=== PATIENT | male | born 1945 | race Caucasian/White ===

== ENCOUNTER 2019-12-16 09:33 | Emergency (ER) | payer MEDICARE, OTHER ==
--- NOTE | 2019-12-16 12:17 | ED.PDOC ---
History of Present Illness - General Chief Complaint: General Stated Complaint: Bilateral leg swelling, numbness, right hip pain Time Seen by Provider: 12/16/19 09:39 Source: patient Exam Limitations: no limitations - History of Present Illness Initial Comments: Patient is a 74-year-old male presented emergency room secondary concern overMild bilateral lower extremity swelling. The patient had back surgery about 5 days ago. He has had a decreased level of activity. No shortness of breath or chest pain. No overt evidence of any infection. No history of any DVTs. No history of CHF. No rash. No pain in the extremities. Timing/Duration: other - 2 days Severity: mild Improving Factors: nothing Worsening Factors: nothing Associated Symptoms: denies symptoms Allergies/Adverse Reactions: Allergies NO KNOWN ALLERGY Allergy (Verified 12/16/19 10:12) Home Medications: Ambulatory Orders Acetaminophen W/ Codeine [Acetaminophen/Codeine Ramona] 1 tab PO Q6HRS PRN 12/16/19 Baclofen 5 mg PO Q6HR 12/16/19 Gabapentin 600 mg PO TID 12/16/19 Lisinopril 10 mg PO DAILY 12/16/19 Multiple Vitamin [Multi Vitamin] 1 tab PO DAILY 12/16/19 Review of Systems - Review of Systems Constitutional: States: no symptoms reported EENTM: States: no symptoms reported Respiratory: States: no symptoms reported Cardiology: States: edema Gastrointestinal/Abdominal: States: no symptoms reported Genitourinary: States: no symptoms reported Musculoskeletal: States: no symptoms reported Skin: States: no symptoms reported Neurological: States: see HPI Endocrine: States: no symptoms reported Hematologic/Lymphatic: States: no symptoms reported All other Systems: No Change from Baseline Past Medical History (General) - Patient Medical History Hx Seizures: No Hx Stroke: No Hx Dementia: No Hx Asthma: No Hx of COPD: No Hx Cardiac Disorders: No Hx Congestive Heart Failure: No Hx Pacemaker: No Hx Hypertension: Yes Hx Thyroid Disease: No Hx Diabetes: No Hx Gastroesophageal Reflux: No Hx Renal Disease: No Hx Cancer: No Hx Hepatitis C: No Surgical History: appendectomy - Vaccination History Hx Influenza Vaccination: No Hx Pneumococcal Vaccination: Yes - Social History Hx Tobacco Use: Yes Hx Chewing Tobacco Use: Yes Hx Alcohol Use: Yes - current Hx Substance Use: No Hx Substance Use Treatment: No Hx Depression: No - Female History Patient is a Female of Child Bearing Age (10 -59 yrs old): No Family Medical History - Family History Mother Family History: Unknown Physical Exam - Physical Exam General Appearance: Alert, Comfortable, No apparent distress Eye Exam: bilateral normal Ears, Nose, Throat: hearing grossly normal, normal pharynx Neck: non-tender, supple Respiratory: lungs clear, no respiratory distress, no accessory muscle use Cardiovascular/Chest: normal peripheral pulses Peripheral Pulses: radial,right: 2+, radial,left: 2+ Rectal Exam: deferred Extremity: normal range of motion - Given chronic limitations, non-tender, normal capillary refill, pedal edema - +1 edema bilaterally. No palpable cords. No pain in the calves. 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 This is most likely due to decreased activity. He does need to increase his activity level. Additionally he can use Solo wraps or compression stockings to help reduce edema. He does need to keep his follow-up with his surgeon. ER warnings are given. Bilateral lower extremity venous Dopplers are negative for any blood clot here today. [email or web address] [email or web address] [id number] - Results/Orders Results/Orders: Laboratory Tests 12/16/19 12/16/19 12/16/19 10:00 10:00 10:00 WBC 6.5 RBC 3.33 L Hgb 10.6 L Hct 31.3 L MCV 93.8 MCH 31.9 H MCHC 34.0 RDW 12.7 Plt Count 305 MPV 7.8 Absolute Neuts (auto) 4.10 Absolute Lymphs (auto) 1.20 Absolute Monos (auto) 0.90 H Absolute Eos (auto) 0.20 Absolute Basos (auto) 0.00 Neutrophils % 63.5 Lymphocytes % 18.5 L Monocytes % 13.9 H Eosinophils % 3.4 Basophils % 0.7 PT 9.7 INR < 1.00 PTT (SP) 24.7 D-Dimer, Quantitative 2110 H* Sodium 135 Potassium 3.5 L Chloride 104 Carbon Dioxide 24 Anion Gap 10.5 L BUN 13 Creatinine 0.70 BUN/Creatinine Ratio 18.6 Random Glucose 140 H Serum Osmolality 272.5 L Calcium 8.6 Total Bilirubin 0.6 AST 30 ALT 20 Alkaline Phosphatase 58 B-Natriuretic Peptide 92.9 Serum Total Protein 7.1 Albumin 3.7 Globulin 3.4 Albumin/Globulin Ratio 1.1 - EKG/XRAY/CT CT Ordered: No Departure - Departure Clinical Impression: Dependent edema Disposition: Discharge to Home or Self Care Condition: Fair Departure Forms: ED Discharge - Pt. Copy, Patient Portal Self Enrollment Instructions: Dependent Edema (DC) Diet: regular diet Activity: increase activity as tolerated - Given limitations by his surgeon Home Medications: Ambulatory Orders Acetaminophen W/ Codeine [Acetaminophen/Codeine Ramona] 1 tab PO Q6HRS PRN 12/16/19 Baclofen 5 mg PO Q6HR 12/16/19 Gabapentin 600 mg PO TID 12/16/19 Lisinopril 10 mg PO DAILY 12/16/19 Multiple Vitamin [Multi Vitamin] 1 tab PO DAILY 12/16/19 Additional Instructions: The patient is a 74-year-old male presented emergency room secondary to mild bilateral lower extremity edema. This is most likely due to decreased activity. He does need to increase his activity level. Additionally he can use Solo wraps or compression stockings to help reduce edema. He does need to keep his follow-up with his surgeon. ER warnings are given. Bilateral lower extremity venous Dopplers are negative for any blood clot here today.
[2019-12-16 12:45] VITALS: BP 147/80; TEMP 97; O2SAT 93
--- NOTE | 2019-12-16 17:19 | US ---
EXAM DESCRIPTION: Venous,Lower Extremity RT CLINICAL HISTORY: edema right lower extremity 5 d post op COMPARISON: None Available. TECHNIQUE: Right lower extremity venous duplex FINDINGS: Doppler evaluation of the right lower extremity deep veins was performed. Normal color flow is seen in the common femoral, superficial femoral, profunda femoral and greater saphenous veins. Normal flow is seen in the popliteal vein and veins below the knee in the calf. Normal venous compressibility and flow augmentation. IMPRESSION: Negative for evidence of deep venous thrombosis on right lower extremity venous Doppler sonogram. Electronically signed by: Derik Chan MD 12/16/2019 4:10 PM CDT
--- NOTE | 2019-12-16 17:19 | US ---
EXAM DESCRIPTION: Venous,Lower Extremity LT CLINICAL HISTORY: edema of the left lower extremity 5 d post op COMPARISON: None Available. TECHNIQUE: Left lower extremity venous duplex FINDINGS: Doppler evaluation of the left lower extremity deep veins was performed. Normal color flow is seen in the common femoral, superficial femoral, profunda femoral and greater saphenous veins. Normal flow is seen in the popliteal vein and veins below the knee in the calf. Normal venous compressibility and flow augmentation. IMPRESSION: Negative for evidence of deep venous thrombosis on left lower extremity venous Doppler sonogram. Electronically signed by: Derik Chan MD 12/16/2019 4:09 PM CDT
== END 2019-12-16 12:42 | disposition home or self-care (01) ==
LOC: ER 09:33 → EDSEX 09:33 → ER 12:42
DX: R60.0 Localized edema (principal); M25.551 Pain in right hip; I10 Essential (primary) hypertension; Z87.891 Personal history of nicotine dependence